=== PATIENT | female | born 1960 | race Caucasian/White ===

== ENCOUNTER → 2017-07-07 | Outpatient (CLI) | payer OTHER ==
--- NOTE | 2017-07-07 12:25 | KCIC ---
COMPLETE ABDOMINAL ULTRASOUND Clinical History: Cirrhosis. Comparison: None. Technique: Sonographic examination of the abdomen was performed and multiple grayscale and color Doppler static images were obtained. Findings: Most of the liver is visualized and is increased in echogenicity. The liver measures 18.7 cm. Ultrasound is not sensitive for detecting solid liver lesions. Portal flow is hepatopetal. The common bile duct is normal in caliber, measuring 3 mm in diameter. The gallbladder wall is normal. Per report, sonographic Ramírez sign is negative. There is no cholelithiasis or pericholecystic fluid. The pancreas appears within normal limits. Pancreas tail is obscured due to overlying bowel gas. The right kidney is normal in echotexture and measures 10.6 cm. The left kidney is normal in echotexture and measures 11.1 cm. Corticomedullary differentiation is preserved. There is no hydronephrosis. The spleen is not enlarged, measuring 9.9 cm. The abdominal aorta and IVC are obscured due to overlying bowel gas. IMPRESSION: Hepatomegaly. Increased echogenicity of the liver, probably due to fatty infiltration. Electronically signed by: Branden Victor MD (07/07/2017 12:22 PM) [id number]
== END | disposition home or self-care (01) ==
LOC: KCIC US 09:54
PROVIDERS: ATTEND Family Medicine
DX: K76.0 Fatty (change of) liver, not elsewhere classified (principal); R16.0 Hepatomegaly, not elsewhere classified
CPT/HCPCS: 76700

== ENCOUNTER → 2018-04-05 | Outpatient (CLI) | payer BC | END | disposition home or self-care (01) | LOC: KCIC US 08:40 | DX: K74.69 Other cirrhosis of liver (principal) | CPT/HCPCS: 76700 ==

== ENCOUNTER → 2018-08-08 | Outpatient (CLI) | payer BC ==
--- NOTE | 2018-08-08 10:57 | KCIC ---
EXAM: Bilateral screening mammogram. HISTORY: 58-year-old female presents for screening mammography. TECHNIQUE: Full-field digital craniocaudal and mediolateral oblique views of both breasts are obtained for evaluation. Computer aided detection with [employer] software version 9.3 was applied. COMPARISON: 07/15/2011 BREAST PARENCHYMAL DENSITY: Level C - Heterogeneously dense. FINDINGS: There is no new suspicious mass, microcalcification or region of architectural distortion. IMPRESSION: BI-RADS Category 2: Benign finding(s). RECOMMENDATION: Annual mammography is recommended. If your mammogram demonstrates that you have dense breast tissue, which could hide abnormalities, and if you have other risk factors for breast cancer that have been identified, you might benefit from supplemental screening tests that may be suggested by your ordering physician. Dense breast tissue, in and of itself, is a relatively common condition. This information is not provided to cause undue concern, but rather to raise your awareness and to promote discussion with your physician regarding the presence of other risk factors, in addition to dense breast tissue. A report of your mammography results will be sent to you and your physician. You should contact your physician if you have any questions or concerns regarding this report. Mammography is a sensitive method for finding small breast cancers, but it does not detect them all and is not a substitute for careful clinical examination. A negative mammogram does not negate a clinically suspicious finding and should not result in delay in biopsying a clinically suspicious abnormality. PQRS compliance statement - Patient information was entered into a reminder system with a target due date for the next mammogram. "Our facility is accredited by the [employer] Mammography [employer]." Electronically signed by: Bronwyn Kasper MD (08/08/2018 10:54 AM) [id number]
== END | disposition home or self-care (01) ==
LOC: KCIC MAMMO 09:35
PROVIDERS: ATTEND Family Medicine
DX: Z12.31 Encounter for screening mammogram for malignant neoplasm of breast (principal)
CPT/HCPCS: 77067

== ENCOUNTER → 2019-01-11 | Outpatient (CLI) | payer OTHER ==
--- NOTE | 2019-01-11 14:00 | KCIC ---
Complete abdominal ultrasound 01/11/2019 9:00 AM Clinical History: Cirrhosis, follow-up Technique: Ultrasound examination of the abdomen was performed, and multiple static images were submitted for review. Comparison: Abdominal ultrasound April 05, 2018 Findings: The visualized portions of the pancreas are within normal limits. The visualized aorta and IVC are unremarkable. The gallbladder is normal in appearance without wall thickening, stones, or sludge. No pericholecystic fluid is seen. Sonographic Ramírez's sign is negative. The common bile duct measures 3 mm in diameter which is within normal limits. The liver is mildly enlarged measuring 19 cm longitudinally. The liver is diffusely echogenic suggesting hepatic steatosis. No intrahepatic biliary ductal dilatation is seen. No focal hepatic lesions are identified. The spleen is normal in appearance measuring 10.8 cm. The bilateral kidneys are normal in appearance without evidence of obstructive uropathy, nephrolithiasis, or focal renal lesion. Right kidney measures 10 point centimeters in length. Left kidney measures 11.6 cm in length. Impression: 1. Mild hepatomegaly. Probable hepatic steatosis 2. Grossly stable exam Electronically signed by: Atul Fuentes MD (01/11/2019 1:57 PM) [id number]
== END | disposition home or self-care (01) ==
LOC: KCIC US 08:37
PROVIDERS: ATTEND Family Medicine
DX: K74.60 Unspecified cirrhosis of liver (principal); R16.0 Hepatomegaly, not elsewhere classified
CPT/HCPCS: 76700

== ENCOUNTER → 2021-07-31 | Outpatient (CLI) | payer OTHER ==
--- NOTE | 2021-07-31 15:34 | KCIC ---
Bilateral digital screening mammograms: Reason for examination: Routine screening. Comparison is made to previous studies dated 08/08/2018 and 07/15/2011. Interpretation was made with the benefit of CAD. The skin and nipples show no abnormalities. No abnormal axillary lymph nodes are seen. The breast par enchyma is heterogeneously dense. (Breast density: Category C.) There appears to be a small nodular d ensity anteriorly at the 11:00 position of the right breast. There is also suggestion of a small arch itectural distortion or superimposed tissues present medially in the right breast seen on cc view. Fu rther evaluation with coned compression views in CC and lateral projections and ultrasound is recomme nded. There are no other dominant masses, suspicious calcifications or architectural distortion. Impression: Possible nodular density at the 11:00 position anteriorly in the right breast and possible architectu ral distortion or superimposed tissue medially in the right breast. Recommend further evaluation with coned compression views in CC and lateral projections and right breast ultrasound. Your patient's mammogram demonstrates that she has dense breast tissue (breast density category C or D), which could hide abnormalities, and if she has other risk factors for breast cancer that have bee n identified, she might benefit from supplemental screening tests that may be suggested by you as her ordering physician. Dense breast tissue, in and of itself, is a relatively common condition. Therefo re, this information is not provided to cause undue concern, but rather to raise your awareness and t o promote discussion with your patient regarding the presence of other risk factors, in addition to d ense breast tissue. Your patient's mammography results will be sent to her. BI-RAD Category 0: Incomplete. Needs additional imaging evaluation. "Our facility is accredited by the [employer] Mammography [employer]." This patient's information has been entered into a reminder system for the patient to be notified wit h the results of her examination and a target date for the next mammogram. Electronically signed by: Chantell King MD (07/31/2021 3:32 PM) [id number]
== END ==
LOC: KCIC 14:40
PROVIDERS: ATTEND Family Medicine
DX: Z12.31 Encounter for screening mammogram for malignant neoplasm of breast (principal)
CPT/HCPCS: 77067

== ENCOUNTER → 2021-08-24 | Outpatient (CLI) | payer OTHER ==
--- NOTE | 2021-08-24 15:42 | RAD ---
EXAM: Right breast diagnostic mammogram; right breast sonogram. HISTORY: 61-year-old female presents for evaluation of nodularity and possible architectural distorti on within the right breast demonstrated on a screening mammogram dated 07/31/2021. TECHNIQUE: Full-field digital and spot compression views of the right breast are obtained. Sonographi c imaging of the right breast targeted to sites of concern was also performed. COMPARISON: 07/31/2021, 08/08/2018 BREAST PARENCHYMAL DENSITY: Level C - Heterogeneously dense. FINDINGS: There is a persistent small nodular density within the 11:00 position of the right breast a t anterior depth with the additional mammographic views. No architectural distortion is seen. There a re benign calcifications. Sonographic imaging of the right breast demonstrates a small round hypoechoic lesion with internal ec hoes at the 11:00 position 4 cm from the nipple measuring 3 mm in maximum dimension, likely correspon ding with the nodularity of concern on the mammographic images. No additional lesion is seen. There i s mild ductal ectasia and there are fibrocystic changes throughout the anterior right breast. IMPRESSION: 1. 3 mm round hypoechoic lesion with internal echoes at the 11:00 position 4 cm from the nipple, the appearance of which favors a complicated cyst. The possibility of a fibroadenoma is not excluded. Thi s does not appear to communicate with adjacent ectatic ducts and there is no internal blood flow to s uggest a papilloma. However, short-term follow-up with a right breast sonogram in 6 months is recomme nded to confirm stability. 2. BI-RADS Category 3: Probably benign finding(s). Short term follow up with a right breast sonogram in 6 months is recommended. If your mammogram demonstrates that you have dense breast tissue, which could hide abnormalities, and if you have other risk factors for breast cancer that have been identified, you might benefit from s upplemental screening tests that may be suggested by your ordering physician. Dense breast tissue, i n and of itself, is a relatively common condition. This information is not provided to cause undue c oncern, but rather to raise your awareness and to promote discussion with your physician regarding th e presence of other risk factors, in addition to dense breast tissue. A report of your mammography re sults will be sent to you and your physician. You should contact your physician if you have any ques tions or concerns regarding this report. Mammography is a sensitive method for finding small breast cancers, but it does not detect them all a nd is not a substitute for careful clinical examination. A negative mammogram does not negate a clin ically suspicious finding and should not result in delay in biopsying a clinically suspicious abnorma lity. PQRS compliance statement - Patient information was entered into a reminder system with a target due date for the next mammogram. "Our facility is accredited by the [employer] Mammography [employer]." Electronically signed by: Bronwyn Kasper MD (08/24/2021 3:40 PM) [id number]
== END ==
LOC: MAMMO 14:22
PROVIDERS: ATTEND Family Medicine
DX: N64.89 Other specified disorders of breast (principal); R92.8 Other abnormal and inconclusive findings on diagnostic imaging of breast
CPT/HCPCS: 76641; 77065